=== PATIENT | male | born 1945 | race Caucasian/White ===

== ENCOUNTER 2019-08-26 10:45 | Day surgery (SDC) ==
[2019-08-21 09:00] LABS: URINE SOURCE CLEAN CATCH
[2019-08-21 09:12] LABS: BASO# 0.03 X1000 (0.0-0.2); BASO% 0.3 % (0.0-0.8); EOS# 0.36 X1000 (0.0-0.7); EOS% 3.3 % (0.0-10.0); IMM GRAN# 0.02 X1000 (0.0-0.04); IMM GRAN% 0.2 % (0.0-0.5); LYMPH# 1.76 X1000 (1.2-3.4); LYMPH% 16.2 % (20.5-51.1); MCH 25.4 PG (27-31); MCHC 31.6 g/dL (33-37); MCV 80.5 FL (81-99); MONO% 6.5 % (1.7-9.3); MPV 9.8 FL (7.4-10.4); NEUT# 7.98 X1000 (1.4-6.5); NEUT% 73.5 % (42.2-75.2); PLT 369 X1000 (130-400); RBC 4.72 XMIL (4.7-6.1); RDW 15.1 % (11.5-14.5); WBC 10.85 X1000 (4.8-10.8)
[2019-08-21 09:18] LABS: INR 0.98; PROTIME 13.1 Seconds (11.0-16.0)
[2019-08-21 09:47] LABS: AGAP 12; BUN 15 mg/dL (8-22); CHLORIDE 95 mmol/L (98-107); COSMO 267; CREATININE 0.9 mg/dL (0.7-1.2); ESTIMATED GFR > 60; GLUCOSE 102 mg/dL (70-104); POTASSIUM 4.1 mmol/L (3.5-5.1); SODIUM 133 mmol/L (136-145); TCO2 26 mmol/L (25-35)
[2019-08-21 09:54] LABS: BILIRUBIN URINE NEGATIVE (NEGATIVE); BLOOD URINE NEGATIVE (NEGATIVE); COLOR YELLOW; GLUCOSE URINE NEGATIVE (NEGATIVE); KETONE URINE NEGATIVE (NEGATIVE); LEUKOCYTES URINE NEGATIVE (NEGATIVE); NITRITE URINE NEGATIVE (NEGATIVE); PROTEIN URINE NEGATIVE (NEGATIVE); SP GRAVITY URINE 1.017; TURBIDITY URINE CLEAR (CLEAR); UROBILINOGEN URINE NORMAL (NORMAL)
[2019-08-21 09:55] LABS: UR EPITHELIAL CELLS <10 /HPF (<10); URINE BACTERIA NEGATIVE /HPF; URINE RBC <10 /HPF (<10); URINE WBC <10 /HPF (<10)
[2019-08-21 11:51] LABS: HEMOGLOBIN A1C 5.9 % (4.8-6.0)
[2019-08-26] MEDS ORDERED: COLACE ONE (11:07)
[2019-08-26] MEDS ORDERED: REGLAN ONE (11:07)
[2019-08-26] MEDS ORDERED: PEPCID ONE (11:07)
[2019-08-26] MEDS ORDERED: LYRICA ONE (11:07)
[2019-08-26] MEDS ORDERED: CELEBREX ONE (11:08)
[2019-08-26] MEDS ORDERED: LR 1,000 ML ONE (11:08)
[2019-08-26] MEDS ORDERED: KEFZOL 1 GM/D5W 1 GM/50 ML IVPB ONE (11:08)
[2019-08-26] MEDS ORDERED: VERSED ONE (12:51)
[2019-08-26] MEDS ORDERED: FENTANYL ONE ×2 (12:51→15:11)
[2019-08-26] MEDS ORDERED: DIPRIVAN 1% 500 MG/50 ML BOTTLE ONE (13:05)
[2019-08-26] MEDS ORDERED: TORADOL ONE (13:25)
[2019-08-26] MEDS ORDERED: DURAMORPH ONE (13:25)
[2019-08-26] MEDS ORDERED: CYKLOKAPRON 1,000 MG/NS 1,000 MG/100 ML IVPB ONE (13:25)
[2019-08-26] MEDS ORDERED: SODIUM CHLORIDE 0.9% ONE (13:25)
[2019-08-26] MEDS ORDERED: MARCAINE 0.25% PF ONE (13:25)
[2019-08-26] MEDS ORDERED: NEOSPORIN G.U. IRRIGANT ONE (13:26)
[2019-08-26] MEDS ORDERED: EXPAREL 1.3% ONE (13:26)
[2019-08-26] MEDS ORDERED: STERILE WATER INJ. ONE (13:40)
[2019-08-26] MEDS ORDERED: NEO-SYNEPHRINE ONE (13:40)
[2019-08-26] MEDS ORDERED: XYLOCAINE-MPF 2% ONE (13:40)
[2019-08-26 14:51] LABS: URINE SOURCE CATH
[2019-08-26 14:57] LABS: BILIRUBIN URINE NEGATIVE (NEGATIVE); BLOOD URINE NEGATIVE (NEGATIVE); COLOR YELLOW; GLUCOSE URINE NEGATIVE (NEGATIVE); KETONE URINE NEGATIVE (NEGATIVE); LEUKOCYTES URINE NEGATIVE (NEGATIVE); NITRITE URINE NEGATIVE (NEGATIVE); PH URINE 7.5; PROTEIN URINE TRACE mg/dL (NEGATIVE); SP GRAVITY URINE 1.026; TURBIDITY URINE CLEAR (CLEAR); UROBILINOGEN URINE NORMAL (NORMAL)
[2019-08-26 14:58] LABS: UR EPITHELIAL CELLS <10 /HPF (<10); URINE BACTERIA NEGATIVE /HPF; URINE RBC <10 /HPF (<10); URINE WBC <10 /HPF (<10)
[2019-08-26] MEDS ORDERED: DIPRIVAN 1% ONE ×2 (15:48→16:42)
[2019-08-26] MEDS ORDERED: ALBUMIN 25% ONE (17:02)
[2019-08-26] MEDS ORDERED: NS 1,000 ML ONE (18:17)
[2019-08-26] MEDS ORDERED: OXY IR ONE (18:38)
[2019-08-26] MEDS ORDERED: NS 1,000 ML IV SCH (19:00)
[2019-08-26] MEDS ORDERED: ZOFRAN IV PRN (19:15)
[2019-08-26] MEDS ORDERED: OXY IR PO PRN ×2 (19:15)
[2019-08-26] MEDS ORDERED: AMBIEN PO PRN (19:15)
[2019-08-26] MEDS ORDERED: MILK OF MAGNESIA PO PRN (19:15)
[2019-08-26] MEDS ORDERED: ZOFRAN ODT PO PRN (19:15)
[2019-08-26] MEDS ORDERED: MORPHINE IV PRN ×3 (19:15)
[2019-08-26] MEDS ORDERED: CYKLOKAPRON 1,000 MG in NS 100 ML IV ONE (20:00)
[2019-08-26] MEDS: TYLENOL PO SCH (20:58)
[2019-08-26] MEDS: ULTRAM PO SCH (20:59)
[2019-08-26] MEDS: LYRICA PO SCH (20:59)
[2019-08-26] MEDS ORDERED: COLACE PO SCH (21:00)
--- NOTE | 2019-08-26 21:25 | OPERATIVE NOTE ---
PROCEDURE DATE: 08/26/2019 PREOPERATIVE DIAGNOSIS: Left hip degenerative joint disease. POSTOPERATIVE DIAGNOSES: Left hip degenerative joint disease plus femur fracture. PROCEDURE: Left anterior total hip arthroplasty with cabling of the femur and a 52 hemispherical shell with two 6.5 cancellous screws of 30 and 40 mm, a 36 mm inside diameter acetabular liner and a Reclaim DePuy revision type prosthesis with a distal taper stem of 15 mm x 140 mm straight, a 20 mm x 85 mm conical proximal body with a locking bolt, and a standard offset proximal neck with a - 2 head. ANESTHESIA: Spinal with general. SURGEON: Braden Andrade MD. CONTROL TOWER RADIO OPERATOR: ELSIE Turner who was present throughout the case. Her assistance was necessary for successful completion of case. BLOOD LOSS: 750. COMPLICATIONS: Femur fracture treated with cables and a long stem. DESCRIPTION OF PROCEDURE: The patient was brought to the operative suite and placed in the supine position. After successful administration of spinal anesthesia, he was placed on the OSI table in the usual position for a left hip. A longitudinal incision was made beginning 3 cm distal and 3 cm lateral to the anterior superior iliac spine, extending distally and slightly laterally 8 cm, dissecting sharp through the skin and subcutaneous tissue down to tensor fascia. The tensor fascia was incised and dissected bluntly down to deep tensor fascia. The deep tensor fascia was incised, and circumflex vessels were electrocauterized exposing the anterior capsule. A T capsulotomy was performed exposing the femoral neck. Femoral neck cut was made with oscillating saw. The femoral head was removed with power corkscrew. The labrum was resected. The acetabulum was serially reamed to a 52 to accept a 52 cup. The 52 cup was driven into place in the proper amount of inclination and anteversion, and two 6.5 cancellous screws were placed at 30 mm superiorly, 40 mm superiorly and 30 mm posterior superiorly and then a 36 mm inside diameter was locked into place. Attention was then directed to the femur. It was externally rotated, extended, adducted, and elevated out of the wound with the hook on the OSI bed. The lateral neck was rongeured. The canal was serially broached to a size 10 high offset stem with a -4 neck length. It was trialed and found to be excellent fit and fill of the stem and excellent stability; however, he was found to have a fracture of the femur distal to the stem even though there was no fracture of the neck. The trial stem was then removed. The incision was extended distally another 3 or 4 cm, through the skin, through the fascia and then 3 cables were placed, 1 below the lesser trochanter, 1 near the tip of the fracture and 1 in between. Once this was completed, we had to convert to a general anesthesia because the spinal had worn off. We reamed with a flexible reamer up to 13 mm and then we reamed with the Reclaim solid reamers to 15 x 140. The 15 x 140 stem was then driven into place and a trial 85 x 20 conical proximal body was trialed with the proper anteversion and -2 head and found to be excellent leg length offset and fit and fill of the stem. The trial of proximal body and the head were then removed, and it was reamed proximally with the 20 mm reamer and then the 20 mm conical proximal body was driven into place with the neck locked into place and then it was locked with a locking ball. Once this was verified to be in good position, the -2 head was placed, and the hip was reduced. It was again found to be in excellent position. Good offset fit and fill of the stem and leg length, stability of the hip and fit and fill of the stem. The hip was copiously irrigated with normal saline containing irrigant and Vashe irrigation. The anterior capsule was repaired with 0 V-Loc. The hip was copiously infiltrated with Exparel, including the posterior capsule, anterior capsule, intramuscular and subcutaneous tissue. A drain was placed deep to the tensor fascia and buried around the stem neck. The tensor fascia was closed with a running 0 V-Loc. Skin edge was approximated with 2-0 Vicryl, closed with a 4-0 Monocryl and a Prineo dressing. The patient tolerated the procedure well without complication. At the end of the procedure, all counts were correct. The patient was transferred to the recovery room in stable condition. cc: Braden Andrade MD
[2019-08-26] MEDS: PERIDEX MT SCH (23:06)
[2019-08-26] MEDS: KEFZOL 1 GM/D5W 1 GM/50 ML IVPB IV SCH (23:06)
[2019-08-27] MEDS: TYLENOL PO SCH ×3 (03:29→13:47)
[2019-08-27] MEDS: ULTRAM PO SCH ×3 (03:29→13:47)
[2019-08-27] MEDS ORDERED: COLACE PO PRN (04:28)
[2019-08-27] MEDS ORDERED: XARELTO PO SCH (06:00)
[2019-08-27] MEDS: KEFZOL 1 GM/D5W 1 GM/50 ML IVPB IV SCH (06:19)
[2019-08-27] MEDS ORDERED: NEXIUM PO SCH (07:00)
[2019-08-27 07:22] LABS: HEMATOCRIT 25.6 % (42.0-52.0); HEMOGLOBIN 7.9 g/dL (14.0-18.0)
[2019-08-27 07:37] LABS: AGAP 10; BUN 16 mg/dL (8-22); CALCIUM 8.1 mg/dL (8.8-10.2); CHLORIDE 99 mmol/L (98-107); COSMO 270; CREATININE 0.9 mg/dL (0.7-1.2); ESTIMATED GFR > 60; GLUCOSE 137 mg/dL (70-104); POTASSIUM 4.6 mmol/L (3.5-5.1); SODIUM 133 mmol/L (136-145); TCO2 24 mmol/L (25-35)
[2019-08-27] MEDS ORDERED: SALINE LOCK IV FLUID XX ONE (08:05)
[2019-08-27] MEDS: LYRICA PO SCH (08:26)
[2019-08-27] MEDS: PERIDEX MT SCH (08:30)
[2019-08-27] MEDS ORDERED: DECADRON IV ONE (09:00)
[2019-08-27] MEDS ORDERED: HYDROCHLOROTHIAZIDE PO SCH (09:00)
[2019-08-27] MEDS ORDERED: MOBIC PO SCH ×2 (09:00)
[2019-08-27] MEDS ORDERED: AVAPRO PO SCH (09:00)
[2019-08-27] MEDS ORDERED: PEPCID PO SCH (09:00)
[2019-08-27 12:21] VITALS: BP 111/65
--- NOTE | 2019-08-28 08:43 | DISCHARGE SUMMARY ---
ADMISSION DATE: 08/26/2019 DISCHARGE DATE: 08/27/2019 DISCHARGE DIAGNOSIS: Left anterior total hip arthroplasty with an intraoperative periprosthetic femur fracture treated with a revision long stem. DISCHARGE MEDICATIONS: See discharge medication list. DISPOSITION: The patient was discharged home with home health and physical therapy. Instructed to return for any signs or symptoms of infection or deep venous thrombosis. Instructed to return to see Dr. Andrade next . HOSPITAL COURSE: On the day of admission, the patient underwent a left anterior total hip arthroplasty. His course was complicated by a periprosthetic femur fracture intraoperatively. This was treated with cables and a long revision type stem. His postoperative course was unremarkable. At discharge, he is afebrile, tolerating a regular diet, ambulating well with physical therapy. His wound is clean, dry, intact without sign of infection. His hemoglobin is 7.9. His hematocrit is 25.6. He is ambulating well with physical therapy. His wound is clean, dry, and intact. He has no sign of infection or deep venous thrombosis. He is discharged home in stable condition with instructions to follow up as described above. cc: Braden Andrade MD
== END 2019-08-27 15:22 | disposition home or self-care (01) ==
LOC: 4N 10:45 → OPS 10:45 → EDSTATUS 13:30 → OPS 08-27 15:22
PROVIDERS: ATTEND Orthopaedic Surgery